=== PATIENT | female | born 1955 | race Caucasian/White ===

== ENCOUNTER 2017-08-07 13:00 | Outpatient (RCR) | payer OTHER, SELFPAY ==
--- NOTE | 2017-07-30 12:42 | HP.PTEVAL ---
Patient's Visit Information IRMA BATEMAN is a 61 year old F referred to Physical Therapy by Bob Rowley with a diagnosis of vertigo. Date of Evaluation: 07/30/17 Physical Therapist: Leroy Campos DPT, OC - Visit Plan Frequency: 1x/Week Duration: 4-6 Weeks Plan: weekly x 4-6 as needed for progression of adaptation ex to be performed at home. VORx2 next if can get coordination down. Monitor balance which is good today. - Subjective Subjective: Vertigo started intermittently a year ago insidiously. Feels unsteady but not spinning but does get nauseated in the am. upon walking. Unsteady feeling is there all day, better sitting. Feels wobbly when she gets up. 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 Saw Timmy for ears and found no problem. Had brain and neck scans which were fine. Heart checked and it is fine. Will see neurologist in October. Activities are pretty normal at home, does house work but distracting and has to be careful. No falls, no AD needed. Sleeps well. Steps are OK. Walks alot. - Objective Walks well and transfers well. VOR walking is challenging. Balance is good dynamically. - B hallpike stephania and - roll test. Oculomotor: no nystagmus with gaze or head shake. - skew eye deviation. convergence is normal. pursuit and ssaccades are normal. VOR is challenging and symptomatic, VOR x 2 8/10 symptomatic and challenging. Recovers renu minute but cannot get ccordination down to do this herself. - Balance Scores Functional Gait Assessment Score: 30 % Disability: 0 CATSIB Score (Max score 120 seconds): 100 - Goals Goal 1:: Patient tolerate VORx2 60 seconds without symptoms Goal Time Frame: 4-6 Weeks Goal 2:: Unsteady /dizzy feeling abolished and 100% improved. Goal Time Frame: 4-6 Weeks Goal 3:: Normal activities including work without missing and walking without hesitation. Goal Time Frame: 4-6 Weeks - Rehabilitation Potential Physical Therapy Diagnosis: Vertigo possible vestibular hypofunction Rehabilitation Potential: Fair - Anticipated Interventions Patient/Client Instruction: Educate patient on: Condition, Risk Factors Other: to decrease symptoms. Comment: adaptation progression Other: to abolish symptoms Thank you for the opportunity to evaluate your patient. For Medicare and Medicare HMO plans, please review the plan of care and approve it. It will need to be FAXED BACK to us at [phone] for Medicare purposes. Please let me know if there are questions or concerns regarding this plan of care. Physician Signature: Date:
--- NOTE | 2017-11-14 12:16 | HP.PT.NRP ---
HP - Discharge Summary (1) - Patient Information IRMA BATEMAN was seen in my office for initial evaluation on 07/30/17. The following Plan of Care was established for this patient: Initial Frequency: 1x/Week Initial Duration: 4-6 Weeks - Anticipated Interventions Patient/Client Instruction: Educate patient on: Condition, Risk Factors Other: to decrease symptoms. Other: to abolish symptoms This patient was last seen in our office 08/07/17. Pertinent comments regarding their Physical therapy will appear below: Pt seen for two visits of her plan for adpatation ex progression. She cancelled her third visit and did not reschedule any further visits. Will discontinue due to nonattendance. At this point I will be discontinuing this patient from physical therapy. I would be happy to see this patient again in the future if found appropriate by the physician. Thank you! Leroy Campos, DPT, OC
== END 2017-08-07 19:00 | disposition home or self-care (01) ==
LOC: PT 13:00
PROVIDERS: Family Provider Student in an Organized Health Care Education/Training Program; PCP Student in an Organized Health Care Education/Training Program; Visit Provider Student in an Organized Health Care Education/Training Program
DX: R42 Dizziness and giddiness (principal)
CPT/HCPCS: 97162; 97530

== ENCOUNTER → 2017-11-05 09:59 | Outpatient (CLI) | payer OTHER, SELFPAY ==
[2017-11-05 11:41] LABS: Hemoglobin A1c 5.4 % (4.2-6.3)
[2017-11-05 12:13] LABS: Rheumatoid Factor < 10.0 IU/mL (<15); Thyroid Stim Hormone (TSH) 2.05 uIU/mL (0.358-3.74)
[2017-11-06 08:35] LABS: Vitamin B12 434 pg/mL (211-911)
[2017-11-06 12:09] LABS: SJOGREN'S Anti-SS-A test < 0.2 AI (0.0-0.9); SJOGREN'S Anti-SS-B test < 0.2 AI (0.0-0.9)
[2017-11-07 16:09] LABS: Albumin 4.2 g/dL (2.9-4.4); Albumin, Ur 15.3 % (.); Alpha-1-Globulin, Ur 5.6 % (.); Alpha-1-Globulins 0.3 g/dL (0.0-0.4); Alpha-2-Globulins 0.8 g/dL (0.4-1.0); Alpha-2-Globulins, Ur 8.8 % (.); Cytoplasmic Ab (C-ANCA) <1:20 titer (Neg:<1:20); Gamma Globulin 0.6 g/dL (0.4-1.8); Gamma Globulin, Ur 27.3 % (.); Immunoglobulin A 134 mg/dL (87-352); Immunoglobulin G 602 mg/dL (700-1600); Immunoglobulin M 60 mg/dL (26-217); M-Spike, Ur % Not Observed % (Not Observed); Total Protein, Ur 4.2 mg/dL (Not Estab.)
[2017-11-07 16:57] LABS: ANTINUCLEAR ANTIBODIES DIRECT Negative (Negative)
[2017-11-08 11:56] LABS: Perinuclear Ab (P-ANCA) <1:20 titer (Neg:<1:20)
== END ==
PROVIDERS: Family Provider Student in an Organized Health Care Education/Training Program; PCP Student in an Organized Health Care Education/Training Program; Visit Provider Psychiatry & Neurology Neurology
DX: G62.9 Polyneuropathy, unspecified (principal); R26.81 Unsteadiness on feet
CPT/HCPCS: 36415; 82607; 82784; 83036; 84165; 84166; 84443; 86038; 86235; 86256; 86334; 86335; 86431

== ENCOUNTER 2019-06-08 14:30 | Outpatient (RCR) | payer OTHER, SELFPAY ==
[2018-10-30 13:44] VITALS: BMI 25.4
--- NOTE | 2019-04-13 17:08 | HP.PTEVAL_ITS ---
Patient's Visit Information IRMA BATEMAN is a 63 year old F referred to Physical Therapy by VAUGHN CHURCHILL with a diagnosis of S/P CERVICAL FUSION. LOSS OF BALANCE.. Date of Evaluation: 04/13/19 Physical Therapist: Mirta Bhatti, PT, Cert MDT - Visit Plan Frequency: 2-3x /Week Duration: 4-6 Weeks Plan: NEUROCOM BALANCE TEST WITH PLAN AND FURTHER GOALS TO FOLOW BASED ON RESULTS. PATIENT IS AGREEABLE. - Subjective Findings: Diagnosis: S/P CERVICAL FUSION AUGUST OF 2018. LOSS OF BALANCE. 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 Disability: NO. Present symptoms: I WALK WOBBLY ALL THE TIME. PATIENT DENIES NECK PAIN. Present since: ABOUT 2 YEARS AGO. Commenced as a result of: NO APPARENT REASON. Symptoms at onset: STARTED TO FEEL LIKE SHE WAS SWAYING WHILE STANDING IN THE KITCHEN. IT LOOKED LIKE THERE WAS SOMEHTING WRONG WITH THE FLOOR. Previous history/Previous treatment: OVER THE LAST 2 YEARS -NO BALANCE TREATMENTS OTHER THAN 2 PT VISITS. Dizziness: NO LONGER. Tinnitis: NO. Nausea: NO. Shortness of Breath: MILD INTERMITTENT. Difficulty Swollowing: NO. Gait: PATIENT REPORTS FEELING UNBALANCED AND WOBBLY WHEN SHE WALKS. SHE STATES IT IS GETTING WORSE. PATIENT REPORTS HER LEGS FEEL LIKE SHE IS IN A KIDS BOUNCY HOUSE. HER LEGS DON'T REALLY GET TIRED THEY ARE JUST REALLY WOBBLY. Accidents: NO. Unexplained weight loss: NO. Imaging: PATIENT REPORTS SHE HAS HAD HER EARS CHECKED AND THEY ARE FINE. NCT OF LE'S - NORMAL. MRI'S OF NECK AND LOW BACK - LOW BACK WAS OK BUT NECK SHOWED C56 BULGE. PMH/Recent major surgery: ANXIETY, HYPOTHYROIDISM, DEPRESSION, HIGH CHOLESTEROL. OTHER: PATIENT REPORTS THAT INITIALLY AFTER NECK SURGERY HER BALANCE GOT BETTER BUT NOW IT IS WORSE THAN BEFORE SURGERY. PATIENT REPORTS THAT SHE WAS NOT WOBBLY BEFORE SHE WAS GIVEN A MEDICATION FOR BIPOLAR DISORDER AND SHE IS WONDERING IF HER BALANCE PROBLEM IS FROM THE MEDICINE. NO LONGER ON IT. PATIENT DENIES HAVING ANY RESTRICTIONS FROM HER NECK SURGERY. - Objective Sitting Posture/Standing Posture: POOR. Other Observations: INDEP GAIT INTO PT WITHOUT ANY ASSISTIVE DEVICES BUT WOBBLY AND WALKS WITH DECREASED CADANCE. CADANCE DECREASED MORE AFTER APPROX 150 FEET. Motor deficit: LENKA UE'S AND LE'S 5/5 WITH MMT'ING. LENKA HEAD SHIPPER STRENGTH 40 LBS. Sensory deficit: LENKA UE AND LE LIGHT TOUCH SENSATION INTACT BUT LEGS ARE JUMPING WITH LE TESTING. ROM deficit: LENKA UE'S AND LE'S WFL. Reflexes: 2/3 LENKA UE'S AND LE'S. Dural Signs: NEGATIVE. Cervical Mvmt Loss: Flex: NIL. Pro: NIL. Ext: MOD. Ret: MARVIN. RSB: MIN. LSB: MIN. R Rot: MIN. L Rot: MIN. CERVICAL ROM TESTING DOES NOT PROVOKE ANY SX'S. Postural strength: POOR. OTHER: PATIENT BECOMES INCREASINGLY WOBBLY ON LEVEL SURFACE WITH EYES CLOSED. INCREASED WOBBLYNESS ON FOAM WITH AND WITHOUT EYES CLOSED. - Goals Goal 1:: INDEP AND SAFE GAIT ON ALL SURFACES WITH LEAST DEVIATIONS. Goal Time Frame: 4-6 Weeks Goal 2:: IMPROVE BALANCE Goal Time Frame: 4-6 Weeks Goal 3:: INDEP HEP Goal Time Frame: 4-6 Weeks - Rehabilitation Potential Rehabilitation Potential: Fair - Anticipated Interventions Patient/Client Instruction: Educate patient on: Condition, Plan of Care, Risk Factors, Benefits of Fitness Program For the Purpose of:: To improve self management Therapeutic Exercise to Include: Strength training, Balance training, Body mechanics, Postural training, Gait and locomotor training, Active ROM, Scapular Strength/Stabilization For the Purpose of:: To improve muscle performance and motor function, To improve ability of physical actions for home/community/work/leisure, To improve gait and locomotor functions Thank you for the opportunity to evaluate your patient. For Medicare and Medicare HMO plans, please review the plan of care and approve it. It will need to be FAXED BACK to us at [phone] for Medicare purposes. For Medicare only, by signing this I certify the plan of care. Please let me know if there are questions or concerns regarding this plan of care. Physician Signatu re: Date:
--- NOTE | 2019-04-21 15:50 | HP.PTCOM ---
PT Communication Note 04/21/[address] VAUGHN CHURCHILL , Thank you for the referral of Vidya to [facility] for balance Assessment. I ahve enclosed a copy of the results for your review. She scored poorly on the Sensory Organization Test adn Adaptation Test despite doing well on the Motor Control and Limits of Stability Test. These are very unusual results. Based on these results, a plan of care for exercise will be modified with the evaluating therapist at next visit. Thank you for this referral. Sincerely, Leroy Campos, DPT, OCS, CSCS Contact Information
--- NOTE | 2019-05-29 15:53 | HP.PTREVAL ---
VAUGHN CHURCHILL, It has been my pleasure to treat IRMA BATEMAN over the last 14 visits for S/P CERVICAL FUSION. LOSS OF BALANCE.. Please see the progress note below for an update on the physical therapy plan of care! Subjective: PATIENT REPORTS SHE FEELS HER BALANCE IS ABOUT 50% BETTER SINCE STARTING PT. PATIENT WOULD LIKE TO CONTIUE PT FOR HER BALANCE AT THIS POINT. PATIENT REPORTS HER LEFT SHLD STARTED HURTING LAST WEEK AND SHE SAW HER DR. FOR IT THIS WEEK ([facility]OLD[facility]). STARTED PREDNISONE TODAY. HASN'T HAD LEFT SHOULDER PAIN TODAY (WORKED 8 HOURS TODAY) BUT HAD PAIN YESTERDAY UP TO 08/15 - MY HAS BEEN RUBBING IT OUT. PATIENT REPORTS SHE WOULD LIKE TO WAIT AND SEE HOW HER SHOULDER DOES WITH THE MEDICINE BEFORE SHE DOES ANYTHING ELSE FOR IT. PATIENT NOW RECALLS THAT SHE HAS STARTED DOING A LOT OF MOPPING OVER THE LAST MONTH AT WORK AND SHE THINKS HER SHOULDER PAIN MIGHT BE RELATED TO THAT WELL. PATIENT REPORTS HER CHIEF CONCERN IS HER BALANCE. Objective/Function: PATIENT WAS SEEN TODAY FOR RE-ASSESSMENT OF PROGRESS TOWARD THE SET PT GOALS AND THE NEED FOR FURTHER PHYSICAL THERAPY VS READINESS FOR DISCHARGE. SHE IS MAKING GOOD PROGRESS WITH HER BALANCE AND IS A GOOD CANDIDATE TO CONTINUE PT. SHE IS DEFERRING EVALUATION OF HER SHOULDER AT THIS TIME AND WILL LET US KNWO IF SHE WOULD LIKE TO HAVE IT EVALUATED IN THE FUTURE. UPON EXAM TODAY: Cervical Mvmt Loss: Flex: NIL. Pro: NIL. Ext: MOD. Ret: MOD. RSB: MIN. LSB: MIN. R Rot: NIL. L Rot: MIN. CERVICAL ROM TESTING DOES NOT PROVOKE ANY SX'S. Postural strength: POOR. OTHER: PATIENT IS NOW ABLE TO STAND STILL ON LEVEL SURFACES WITH EYES OPEN AND CLOSED WITHOUT BECOMING WOBBLY. SHE IS EVEN ABLE TO STAND ON FOAM WITH EYES OPEN WITH GOOD BALANCE BUT WITH EYES CLOSED ON FOAM SHE GETS WOBBLY ALTHOUGH SHE CAN STEADY HER BALANCE AT TIMES ON THIS SURFACE WHICH IS A BIG IMPROVEMENT. Plan Plan: CONTINUING WITH WITH FUNCTIONAL BALANCE/STRENGTH(GENERAL BALANCE AND STRENGTH/CONDITIONING EX TO HEP) AND PROGRESSION OF HEP WITH VESTIBULAR AND VISUAL. CONT 2X'S A WK X 4 WKS. PT HAS NEW SCRIPT FROM TOBY BOLDEN FOR LEFT TRAP STRAIN AND RECOMMENDING DRY NEEDLING - PATIENT WILL LET US KNOW IF SHE WANTS TO PURSUE THIS IN THE FUTURE. Goals Goal 1:: INDEP AND SAFE GAIT ON ALL SURFACES WITH LEAST DEVIATIONS. Goal Time Frame: 4-6 Weeks Goal Progress: Goal Met Goal 2:: IMPROVE BALANCE Goal Time Frame: 4-6 Weeks Goal Progress: Progressing Goal 3:: INDEP HEP Goal Time Frame: 4-6 Weeks Goal Progress: Progressing Anticipated Interventions Patient/Client Instruction: Educate patient on: Condition, Plan of Care, Risk Factors, Benefits of Fitness Program For the Purpose of:: To improve self management Therapeutic Exercise to Include: Strength training, Balance training, Body mechanics, Postural training, Gait and locomotor training, Active ROM, Scapular Strength/Stabilization For the Purpose of:: To improve muscle performance and motor function, To improve ability of physical actions for home/community/work/leisure, To improve gait and locomotor functions Please do not hesitate to contact me at [phone] by phone or if you have questions or concerns regarding this new plan of care! Sincerely, Mirta Bhatti, PT, Cert MDT
--- NOTE | 2019-07-07 12:39 | HP.PT.NRP ---
IRMA BATEMAN was seen in my office for initial evaluation on 04/13/19. The following Plan of Care was established for this patient: Initial Frequency: 2-3x /Week Initial Duration: 4-6 Weeks Patient/Client Instruction: Educate patient on: Condition, Plan of Care, Risk Factors, Benefits of Fitness Program For the Purpose of:: To improve self management Therapeutic Exercise to Include: Strength training, Balance training, Body mechanics, Postural training, Gait and locomotor training, Active ROM, Scapular Strength/Stabilization For the Purpose of:: To improve muscle performance and motor function, To improve ability of physical actions for home/community/work/leisure, To improve gait and locomotor functions This patient was last seen in our office 06/08/19. Pertinent comments regarding their Physical therapy will appear below: This patient has not returned to Physical Therapy and is appropriate to return to MD for further follow-up as needed. At this point I will be discontinuing this patient from physical therapy. I would be happy to see this patient again in the future if found appropriate by the physician. Thank you! Mirta Bhatti, PT, Cert MDT
== END 2019-06-08 19:00 | disposition home or self-care (01) ==
LOC: PT 14:30
PROVIDERS: Family Provider Student in an Organized Health Care Education/Training Program; PCP Student in an Organized Health Care Education/Training Program
DX: S46.812D Strain of other muscles, fascia and tendons at shoulder and upper arm level, left arm, subsequent encounter (principal); Z98.1 Arthrodesis status; R26.89 Other abnormalities of gait and mobility
CPT/HCPCS: 97110; 97162; 97164; 97530; 97750

== ENCOUNTER 2019-09-30 11:00 | Outpatient (RCR) | payer OTHER, SELFPAY ==
[2018-10-30 13:44] VITALS: BMI 25.4
--- NOTE | 2019-09-08 11:54 | HP.PTEVAL ---
Patient's Visit Information IRMA BATEMAN is a 63 year old F referred to Physical Therapy by VAUGHN CHURCHILL with a diagnosis of Gait Instability. Date of Evaluation: 09/08/19 Physical Therapist: Sherrell Hsieh DPT - Visit Plan Frequency: 3x /Week Duration: 4 Weeks Plan: Balance exercises- Per Leroy Campos Report in April regular therapy for vestibular and foam challenge - Subjective Patient reports that she 3 years ago she started feeling unbalance in her legs- like the floor was moving- so she went to PCP who sent her to Dr. Ellis who went her to many neurologists- did have an MRI of the brain and spine- but they were unsure of what was going on with her legs. They found C5-6 and she had a Acdf August 2018- went back to work after 8 weeks and she could still feel the wobbliness but she could handle it. Started to get worse- had PT including a balance assessment. Was 60% better and felt good- slightly unbalances but she was walking better without an assistive device unless as work. 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 She was laid off yesterday so she is off for another 2 months. Feels that she is not getting enough exercise and has backslid. Dr. Ellis wants her to have another MRI but insurance denied it- so she came back to PT. Feels that since she stopped PT she is now using a cane all the time and when she walks she feels like her feet are going down in the carpet-walking on quicksand. Has not had any falls at this time. Does have stairs at home and uses hand rails. Does drive- she reports no symptoms when she sitting. No dizziness or HILL. She feels like she is constantly taking her glasses off due to strain. No SOB or tinnitis. Does have mild pain the right shoulder that comes and goes but thinks its due to being inactive. No pain in the lumbar spine or LE. Lives with - takes her longer to do all ADL's but is able to still manage. PMHx: thyroid Meds, HTN, asthma: anxiety, HTN med, inhaler - Objective Posture: Fair throughout in both sitting and standing. Gait: antaxic- currently using a quad cane in the right hand. Foot placement is good but legs tend to buckle- she can correct buckling and does not fall. Stairs: asc/desc 8 recip with 1 HR- no LOB. HR/TR: able with full ROM. Balance: unable to SLS without UE A. Amb with head turn horizon: deviation was increased and required to slow down and A from PT to balance. Amb with vert head turns able to maintain speed. Backwards: able with cane. Tandem stance: left: able to obtain and hold 20 seconds Right: able to obtain and hold 5 seconds increased LOB and sway. Eyes closed: LOB x 2 with righting from PT. ROM: WFL in all planes of lumbar and LE. Sensation/Reflex: WNL. Strength: Ankle: 5/5, knee: 5/5, Hip: 4+/5 throughout Core: fair plus. Dural Signs: negative - Balance Scores Functional Gait Assessment Score: 13 % Disability: 56.6700 - Goals Goal 1:: Patient will be I with HEP and progression Goal Time Frame: 4-6 Weeks Goal 2:: Patient will ambulate >300 feet with a normalized gait pattern and LRD Goal Time Frame: 4-6 Weeks Goal 3:: Patient will improve her FGI by 5 points Goal Time Frame: 4-6 Weeks - Rehabilitation Potential Physical Therapy Diagnosis: Patient presents with hypomobility. She has poor balance and functional mobility leading to increased difficulty with ADL's. Rehabilitation Potential: Fair - Anticipated Interventions Patient/Client Instruction: Educate patient on: Benefits of Fitness Program Therapeutic Exercise to Include: Strength training, Endurance training, Balance training, Coordination, Agility training, Body mechanics, Postural training, Flexibilty training, Gait and locomotor training, Neuromotor development, Dynamic Lumbar Stabilization For the Purpose of:: To improve muscle performance and motor function Functional Training to Include: Gait training Thank you for the opportunity to evaluate your patient. For Medicare and Medicare HMO plans, please review the plan of care and approve it. It will need to be FAXED BACK to us at [phone] for Medicare purposes. For Medicare only, by signing this I certify the plan of care. Please let me know if there are questions or concerns regarding this plan of care. Physician Signature: Date:
--- NOTE | 2019-10-26 11:12 | HP.PT.NRP ---
IRMA BATEMAN was seen in my office for initial evaluation on 09/08/19. The following Plan of Care was established for this patient: Initial Frequency: 3x /Week Initial Duration: 4 Weeks Patient/Client Instruction: Educate patient on: Benefits of Fitness Program Therapeutic Exercise to Include: Strength training, Endurance training, Balance training, Coordination, Agility training, Body mechanics, Postural training, Flexibilty training, Gait and locomotor training, Neuromotor development, Dynamic Lumbar Stabilization For the Purpose of:: To improve muscle performance and motor function Functional Training to Include: Gait training This patient was last seen in our office . Pertinent comments regarding their Physical therapy will appear below: Patient is having knee surgery- d/c at this time At this point I will be discontinuing this patient from physical therapy. I would be happy to see this patient again in the future if found appropriate by the physician. Thank you! MAURICIO CastroT
== END 2019-09-30 19:00 | disposition home or self-care (01) ==
LOC: PT 11:00
PROVIDERS: PCP Student in an Organized Health Care Education/Training Program
DX: M48.02 Spinal stenosis, cervical region (principal); R26.81 Unsteadiness on feet; Z98.1 Arthrodesis status
CPT/HCPCS: 97110; 97112; 97162

== ENCOUNTER → 2019-10-19 13:07 | Outpatient (CLI) | payer OTHER, SELFPAY ==
[2018-10-30 13:44] VITALS: BMI 25.4
--- NOTE | 2019-10-19 13:18 | EKG12_ITS ---
Test Reason : PRE OP Blood Pressure : / mmHG Vent. Rate : 068 BPM Atrial Rate : 068 BPM P-R Int : 110 ms QRS Dur : 076 ms QT Int : 392 ms P-R-T Axes : 042 005 043 degrees QTc Int : 416 ms Sinus rhythm with short OH Otherwise normal ECG Confirmed by HARESH OVALLES, CARL ([id number]), newspaper photo editor JERRY MCCORMACK ([id number]) on 10/20/2019 10:09:41 AM Referred By: Jeromy Lopez Confirmed By:CARL HUTSON MD
[2019-10-19 13:54] LABS: Hematocrit 44.8 % (37-47); Hemoglobin 14.9 g/dL (12.0-15.0); Mean Corp Hgb Conc 33.3 g/dL (32-36); Mean Corpuscular Hgb 31.8 pg (27.0-32.0); Mean Corpuscular Volume 95.5 fL (81-99); Mean Platelet Vol. 10.6 fl (6.2-12.0); Platelet Count 298 K/mm3 (150-450); RBC Distribution Width SD 45.2 fl (35.1-43.9); Red Blood Count 4.69 M/mm3 (4.2-5.4); White Blood Count 8.1 K/mm3 (4.4-11.0)
[2019-10-19 14:17] LABS: Anion Gap 5 (5-15); BUN 8 mg/dL (7-18); BUN/Creat Ratio 12.1 RATIO (10-20); Calcium,Total 8.9 mg/dL (8.5-10.1); Chloride 103 mmol/L (98-107); Creatinine, Serum 0.66 mg/dL (0.55-1.02); EST Glomerular Filtration Rate 96 mL/min (>60); Est Glom Filt Rate - Afr Amer 116 mL/min (>60); Glucose 69 mg/dL (74-106); Sodium Level 137 mmol/L (136-145)
== END ==
PROVIDERS: PCP Student in an Organized Health Care Education/Training Program; Referring Provider Physician Assistant; Visit Provider Physician Assistant
DX: Z01.810 Encounter for preprocedural cardiovascular examination (principal)
CPT/HCPCS: 36415; 80048; 85027; 93005

== ENCOUNTER → 2019-11-05 11:26 | Outpatient (CLI) | payer OTHER, SELFPAY ==
[2018-10-30 13:44] VITALS: BMI 25.4
== END ==
PROVIDERS: PCP Student in an Organized Health Care Education/Training Program; Referring Provider Physician Assistant; Visit Provider Physician Assistant
DX: Z11.59 Encounter for screening for other viral diseases (principal)
CPT/HCPCS: 87635; 94799; U0003

== ENCOUNTER 2019-12-18 11:00 | Outpatient (RCR) | payer OTHER, SELFPAY ==
[2018-10-30 13:44] VITALS: BMI 25.4
--- NOTE | 2019-11-18 14:32 | HP.PTEVAL ---
Patient's Visit Information IRMA BATEMAN is a 64 year old F referred to Physical Therapy by Dr. Tarun Jama DO with a diagnosis of UNILATERAL PRIMARY OSTEOARTHRITIS,RIGHT KNEE,TEAR OF MEDIAL MENISCUS. Date of Evaluation: 11/18/19 Physical Therapist: Dru Cooper, PT, Cert MDT, OCS - Visit Plan Frequency: 2x /Week Duration: 4 Weeks Plan: PT INTERVENTIONS ROM/FLEXABLITY RIGHT KNEE ,PRE'S QUADS/HAM/HIP,FUNCTIONAL STRENGTHENING ,GAIT TRAINING - Subjective This 64 y/o female presents to physical therapy with right knee arthroscopic on Nov 10 at [facility] done by DR Simmons. Patient d/c home with cane . Patient had MRI prior to surgey showed torn meniscus.Patient had no prior PT. Patient denies parathesia/tingling. Patient unable to squat/kneel and stairs one step at time .Patient uses ice at home uses percocet. Patient surgery affectrs ADL'S ,houswork tasks and function. Patient condition affects QOL.RTW Dec 25. SOCIAL: . VOCATION: [employer] - Objective POSTURE: mild foward posture. GAIT: ambulates with cane with 2 point gait with decrease stance time. EDEMA: 38.8 cm joint line. AROM: supine knee flexion 2-95 degrees. MMT: quads/hams 3+/5,hip 4-/5,ankle 4/5. STAIRS: one step at time with cane. FLEXABLITY: hams mild tight - Goals Goal 1:: I with HEP. Goal Time Frame: 4-6 Weeks Goal 2:: Patient to increase AROM right knee 0-120 degrees or > to improve gait Goal Time Frame: 4-6 Weeks Goal 3:: Patient to increase strength of quads/hams 4/5 and hip to 4/5 to improve gait. Goal Time Frame: 4-6 Weeks Goal 4:: Patient to increase strength quads/hams/hip to 4/5 to improve gait Goal Time Frame: 4-6 Weeks Goal 5:: Patient to normalize gait community distances Goal Time Frame: 4-6 Weeks Goal 6:: Patient to improve LFES score by 10points or > to improve QOL Goal Time Frame: 4-6 Weeks - Rehabilitation Potential Physical Therapy Diagnosis: This patient underwent s/p arhrospic knee menisectomy with decrease ROM ,strength ,gait and stairs thus benifit from skilled PT Rehabilitation Potential: Good - Anticipated Interventions Patient/Client Instruction: Educate patient on: Condition, Plan of Care For the Purpose of:: To decrease pain, To increase ROM, To improve muscle performance and motor function, To improve ability to perform ADL's, To increase tolerance to activity/condition/position, To improve ability of physical actions for home/community/work/leisure, To improve health of tissue, To decrease soft tissue restriction, To increase flexibility/ROM, To improve ability to perform tasks related to life management Therapeutic Exercise to Include: Strength training, Endurance training, Balance training, Flexibilty training, Gait and locomotor training, Passive ROM, Active ROM Comment: HIP/KNEE For the Purpose of:: To decrease pain, To increase ROM, To improve muscle performance and motor function, To increase tolerance to activity/condition/position, To improve performance and independence with ADL's, To improve ability of physical actions for home/community/work/leisure, To improve gait and locomotor functions, To improve health of tissue, To decrease soft tissue restriction, To increase flexibility/ROM, To improve endurance, To reduce risk of recurrence, To improve ability to perform tasks related to life management TENS: Yes IF ES: Yes Cryotherapy (ice pack, ice massage): Yes Thermo therapy (hot pack): Yes Ultrasound (thermal/non thermal): Yes For the Purpose of:: To decrease pain, To increase ROM, To improve health of tissue, To decrease soft tissue restriction, To increase flexibility/ROM Thank you for the opportunity to evaluate your patient. For Medicare and Medicare HMO plans, please review the plan of care and approve it. It will need to be FAXED BACK to us at [phone] for Medicare purposes. For Medicare only, by signing this I certify the plan of care. Please let me know if there are questions or concerns regarding this plan of care. Physician Signature: Date:
--- NOTE | 2019-12-18 11:29 | HP.PTDCSUM ---
It has been my pleasure to treat IRMA BATEMAN referred by Dr. Tarun Jama DO, with the diagnosis of UNILATERAL PRIMARY OSTEOARTHRITIS,RIGHT KNEE,TEAR OF MEDIAL MENISCUS for a total of 10 visit(s). Discharge Date: 12/18/19 Please see the following information for a summary of their discharge status. Subjective: Doing well .. no pain Ready for d/c . Will start new oefer for balance. Patient able to do stairs and ADLS' and housework tasks % Improvement: 99 Objective/Function: POSTURE: WFL. GAIT: reciprocal pattern. STAIRS: ascend 12 steps with no rail and descend with rails alteranting. AROM: 0-135 SUPINE KNEE FKEXION. MMT: QUADS/HAMS 4/5,HIP 4/5 Goal 1:: I with HEP. Goal Progress: Goal Met Goal 2:: Patient to increase AROM right knee 0-120 degrees or > to improve gait Goal Progress: Goal Met Goal 3:: Patient to increase strength of quads/hams 4/5 and hip to 4/5 to improve gait. Goal Progress: Goal Met Goal 4:: Patient to increase strength quads/hams/hip to 4/5 to improve gait Goal Progress: Goal Met Goal 5:: Patient to normalize gait community distances Goal Progress: Goal Met Goal 6:: Patient to improve LFES score by 10points or > to improve QOL Goal Progress: Goal Met Plan: d/c to HEP Discharge Comments: HEP If there are questions or concerns regarding this patient's physical therapy, please feel free to call me at [phone]. Thank you for the referral of this patient. Sincerely, Dru Cooper, PT, Cert MDT, OCS
== END 2019-12-18 19:00 | disposition home or self-care (01) ==
LOC: PT 11:00
PROVIDERS: PCP Student in an Organized Health Care Education/Training Program; Referring Provider Orthopaedic Surgery; Visit Provider Orthopaedic Surgery
DX: S83.241D Other tear of medial meniscus, current injury, right knee, subsequent encounter (principal); M17.11 Unilateral primary osteoarthritis, right knee; R26.9 Unspecified abnormalities of gait and mobility
CPT/HCPCS: 97110; 97162

== ENCOUNTER 2020-01-22 13:30 | Outpatient (RCR) | payer OTHER, SELFPAY ==
[2018-10-30 13:44] VITALS: BMI 25.4
--- NOTE | 2019-12-28 12:53 | HP.PTEVAL ---
Patient's Visit Information IRMA BATEMAN is a 64 year old F referred to Physical Therapy by SHARRI Cardona with a diagnosis of ABNORMALITY OF GAIT. Date of Evaluation: 12/28/19 Physical Therapist: Dru Cooepr, PT, Cert MDT, OCS - Visit Plan Frequency: 2x /Week Duration: 4 Weeks Plan: RECENT S/P RIGHT ARTHROSCPIC. PT INTERVETIONS PROGRESSIVE BALANCE PROGRAM,ENDURANCE PROGRAM ,FUNCTIONAL STRENGTH - Subjective This 64 y/o female presents to physical therapy with abnormality of gait and balance problems. Patient recently had right arthroscopic right knee Nov 10 and did well. Patient most recently has had balance problems and unsteady with gait. Patient states no falls,. Patient fells more unsteady walking on uneven surfaces. Patient denies dizziness/nausea/tinnutis or any h/o vertigo. Patient is able to ascend/desend steps alteranting with rail. Patient balance deficits impair job deamnds [employer]. Patient condition affects QOL. SOCIAL: . VOCATION: [employer] - Objective POSTURE: mild knee valgus. GAIT: reciprocal pattern mild unsteady sway. NEURO: intact. FLEXABILITY: hams WFL. AROM: 0-130 supine knee flexion. MMT: quads/hams 4/5,hip flexion 4-/5,ankle 4/5. STAIRS: alternating with rail. SLS: 5 sec RLE,10sec LLE - Balance Scores Functional Gait Assessment Score: 17 % Disability: 43.3400 CATSIB Score (Max score 120 seconds): 80 - Goals Goal 1:: I with HEP Goal Time Frame: 4-6 Weeks Goal 2:: Improve functional gait assessment score by 5 ponts or > to improve gait Goal Time Frame: 4-6 Weeks Goal 3:: Patient improve CATSIB by 5 points or > to improve balance Goal Time Frame: 4-6 Weeks Goal 4:: Patient to improve LFES score by 5 points or > to improve gait and function Goal Time Frame: 4-6 Weeks - Rehabilitation Potential Physical Therapy Diagnosis: This patient has balance deficits with decrease CATSIB score,functional gait assessment with decrease somatosensory and vistibular on uneven surfaces thus benifit from skilled PT Rehabilitation Potential: Good - Anticipated Interventions Patient/Client Instruction: Educate patient on: Condition, Plan of Care For the Purpose of:: To decrease pain, To increase ROM, To improve muscle performance and motor function, To improve ability to perform ADL's, To increase tolerance to activity/condition/position, To improve performance and independence with ADL's, To improve ability of physical actions for home/community/work/leisure, To improve gait and locomotor functions, To increase flexibility/ROM, To improve balance Therapeutic Exercise to Include: Strength training, Endurance training, Balance training, Flexibilty training, Gait and locomotor training, Active ROM For the Purpose of:: To increase ROM, To improve muscle performance and motor function, To improve ability to perform ADL's, To increase tolerance to activity/condition/position, To improve ability of physical actions for home/community/work/leisure, To improve gait and locomotor functions, To improve endurance, To improve balance, To reduce risk of recurrence, To improve ability to perform tasks related to life management Thank you for the opportunity to evaluate your patient. For Medicare and Medicare HMO plans, please review the plan of care and approve it. It will need to be FAXED BACK to us at [phone] for Medicare purposes. For Medicare only, by signing this I certify the plan of care. Please let me know if there are questions or concerns regarding this plan of care. Physician Signature: Date:
--- NOTE | 2020-01-05 12:57 | HP.PTRE(2)_ITS ---
Maris Kern, FABIÁN-C, It has been my pleasure to treat IRMA BATEMAN over the last 10 visits for UNILATERAL PRIMARY OSTEOARTHRITIS RIGHT KNEE ,TEAR OF MEDIAL MENISCUS. Please see the progress note below for an update on the physical therapy plan of care! Subjective: PATIENT RETURN TO MD WANTS TO CONT WITH PT. PATIENT UNDERWENT S/P ARTHRSOPIC . RTW JAN 6 Objective/Function/Assessment: POSTURE: mild knee valgus. GAIT: reciprocal pattern mild decrease stance time. AROM: 0-140 DEGREES SUPINE FLEXION. MMT: quads/hams 4/5,hip flexion/ abduction 4-/5. STAIRS: alternating with rail more difficulty descending Plan Plan: CONT WITH POC WITH RIGHT KNEE WITH ROM ,STRENGTHENING QU ADS/HAMS,HIP,FUNCTIONAL STRENGTHENING Goals Goal 1:: I with progression with HEP right knee Goal Time Frame: 4-6 Weeks Goal 2:: Patient ascend /descend right knee alteranating without rail Goal Time Frame: 4-6 Weeks Goal 3:: Patient to normalize gait on uneven surfaces Goal Time Frame: 4-6 Weeks Goal Progress: Progressing Goal 4:: Patient improve LFES score by 5-10 points to improcve gait Goal Time Frame: 4-6 Weeks Goal 5:: Patient be able to RTW with min limiations Anticipated Interventions Patient/Client Instruction: Educate patient on: Condition, Plan of Care For the Purpose of:: To decrease pain, To increase ROM, To improve muscle performance and motor function, To improve ability to perform ADL's, To decrease level of supervision to perform tasks, To improve gait and locomotor functions, To increase flexibility/ROM, To improve endurance, To reduce risk of recurrence, To improve ability to perform tasks related to life management Therapeutic Exercise to Include: Strength training, Balance training, Flexibilty training, Gait and locomotor training, via [employer] Balance Mas, Active ROM For the Purpose of:: To decrease pain, To increase ROM, To improve muscle performance and motor function, To improve ability to perform ADL's, To improve ability of physical actions for home/community/work/leisure, To improve gait and locomotor functions, To improve health of tissue, To decrease soft tissue rest riction, To increase flexibility/ROM, To improve ability to perform tasks related to life management Please do not hesitate to contact me at [phone] by phone or if you have questions or concerns regarding this new plan of care! Sincerely, Dru Cooper, PT, Cert MDT, OCS
--- NOTE | 2020-01-22 14:01 | HP.PTDCSUM_ITS ---
It has been my pleasure to treat IRMA BATEMAN referred by Maris Kern, BILLY Butler, with the diagnosis of ABNORMALITY OF GAIT for a total of 6 visit(s). Discharge Date: Please see the following information for a summary of their discharge status. Subjective: No change in balance . pt noted still feeling like her feet are off. pt is going to go to eye dr about her vision issues. Still gets dizzy when going sit to stand too quickly. Objective/Function: ex altered today d/t R knee pain c/o. pt is definately challenged w/ balance EC. pt struggles at home when amb in the dark in her home and has to use surfaces to balance. Goal 1:: I with HEP Goal 2:: Improve functional gait assessment score by 5 ponts or > to improve gait Goal 3:: Patient improve CATSIB by 5 points or > to improve balance Goal 4:: Patient to improve LFES score by 5 points or > to improve gait and function Plan: RECENT S/P RIGHT ARTHROSCPIC. PT INTERVETIONS PROGRESSIVE BALANCE PROGRAM,ENDURANCE PROGRAM ,FUNCTIONAL STRENGTH If there are questions or concerns regarding this patient's physical therapy, please feel free to call me at [phone]. Thank you for the referral of this patient. Sincerely, Dru Cooper, PT, Cert MDT, OCS
--- NOTE | 2020-01-22 14:17 | HP.PTDCSUM ---
It has been my pleasure to treat IRMA BATEMAN referred by SHARRI Cardona, with the diagnosis of ABNORMALITY OF GAIT for a total of 7 visit(s). Discharge Date: 01/22/20 Please see the following information for a summary of their discharge status. Subjective: Patient is doing good with balance no problems,RTW. WALK on alcrons yesterday. % Improvement: 80 Objective/Function: POSTURE: WFL. MMT: QUADS/HAMS 5/5,HIP 4/5. BALANCE: GOOD. SLS : 30SEC X2 Goal 1:: I with HEP Goal Progress: Goal Met Goal 2:: Improve functional gait assessment score by 5 ponts or > to improve gait Goal Progress: Goal Met Goal 3:: Patient improve CATSIB by 5 points or > to improve balance Goal Progress: Goal Met Goal 4:: Patient to improve LFES score by 5 points or > to improve gait and function Goal Progress: Goal Met Plan: D/C If there are questions or concerns regarding this patient's physical therapy, please feel free to call me at [phone]. Thank you for the referral of this patient. Sincerely, Dru Cooper, PT, Cert MDT, OCS
--- NOTE | 2020-01-22 14:20 | HP.PTDCS(2) ---
It has been my pleasure to treat IRMA BATEMAN referred by SHARRI Cardona, with the diagnosis of UNILATERAL PRIMARY OSTEOARTHRITIS RIGHT KNEE ,TEAR OF MEDIAL MENISCUS for a total of 14 visit(s). Discharge Date: 01/22/20 Please see the following information for a summary of their discharge status. Subjective: Doing better no pain. Able to walk up the steps no pain . Doing well . RTW Jan 6 % Improvement: 95 Objective/Function/Assessment: POSTURE: WFL. GAIT: RECIPROCAL PATTERN. AROM: 0-135 DEGREES. MMT: 5/5 QUADS/HAMS ,HIP FLEXION 4/5,ANKLE 5/5. STAITRS: ALTERANATING ASCENDING NO RAILS,DESNEDING WITH RAIL ALTERANATING Patient Goals: Improve Mobility, Improve Function, Alleviate Pain, Walk Normal, Maneuver Steps, Other Other Goals: RTW Goal 1:: I with progression with HEP right knee Goal Progress: Goal Met Goal 2:: Patient ascend /descend right knee alteranating without rail Goal Progress: Goal Met Goal 3:: Patient to normalize gait on uneven surfaces Goal Progress: Goal Met Goal 4:: Patient improve LFES score by 5-10 points to improcve gait Goal Progress: Goal Met Goal 5:: Patient be able to RTW with min limiations Plan: D/C Discharge Comments: HEP If there are questions or concerns regarding this patient's physical therapy, please feel free to call me at [phone]. Thank you for the referral of this patient. Sincerely, Dru Cooper, PT, Cert MDT, OCS
== END 2020-01-22 19:00 | disposition home or self-care (01) ==
LOC: PT 13:30
PROVIDERS: PCP Student in an Organized Health Care Education/Training Program; Referring Provider Nurse Practitioner Family; Visit Provider Nurse Practitioner Family
DX: R26.9 Unspecified abnormalities of gait and mobility (principal)
CPT/HCPCS: 97110; 97162; 97530

== ENCOUNTER 2020-10-25 11:00 | Outpatient (RCR) | payer OTHER, SELFPAY ==
[2018-10-30 13:44] VITALS: BMI 25.4
--- NOTE | 2020-09-26 14:24 | HP.PTEVAL_ITS ---
Patient's Visit Information IRMA BATEMAN is a 64 year old F referred to Physical Therapy by LAUREN HERNANDEZ with a diagnosis of Functional gait disorder, loss of balance, apraxia. Date of Evaluation: 09/26/20 Physical Therapist: JANAY Chavis - Visit Plan Frequency: 2x /Week Duration: 6 Weeks Plan: 2X/ week for 4-6 weeks for LE strengthening, gait training, balance and vestibular inputs (especially with eyes closed and foam work), corrdination with HEP - Subjective Pt reports that she was here in PT before for her balance at least 9 months ago and her legs have gotten worse. She saw another nuerologist in [place] and basically he said if she did not do therapy she would end up in retirement. She is not working and on FMLA. She has an assessment in [place] in October. She is doing a test in a chair with goggles on in [place] in October. She is not having dizziness. She complains that when she walks her feet feel like they are going down in the carpet, she is unsteady when she walks. Since her R knee surgery (menisectomy) she has to do exercises with the knee because her knee is so tight. She has not had any falls. She uses a cane all the time when she leaves the house. Her imbalance all started in 2018. She has had neck surgery (C5-C6) and they were thinking that was her imbalance but it did not go away after the surgery. She reports that both legs feel weak when she walks. She is able to go up the steps with a railing and reports 2 feet to a step. Sit to stand: she is able to. 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 - Objective Gait: Walks with apraxia and decreased proprioception with wider LOREN and decreased stride.. Walking BW is better than walking FW. LE MMT: B hip flex 4-/5, B knee ext 4/5, B knee flex 4-/5, B hip abd 4-/5. Pt was able to walk on heels and toes without UE support. FGA 12. CATSIB 75. Patellar DTR's 3+ B. Clonus possible 2 beat... pt finds it hard to relax - Balance Scores Functional Gait Assessment Score: 12 % Disability: 60.0000 CATSIB Score (Max score 120 seconds): 75 - Goals Goal 1:: I HEP Goal Time Frame: 4-6 Weeks Goal 2:: Increase CATSIB by 15 points to decrease fall risk (CATSIB 12 at time of eval) Goal Time Frame: 4-6 Weeks Goal 3:: Be able to walk with 50% increase in confidence Goal Time Frame: 4-6 Weeks Goal 4:: Increase B LE strength by 1/2 muscle grade (at time of eval: LE MMT: B hip flex 4-/5, B knee ext 4/5, B knee flex 4-/5, B hip abd 4-/5. Pt was able to walk on heels and toes without UE support). - Rehabilitation Potential Rehabilitation Potential: Good - Anticipated Interventions Patient/Client Instruction: Educate patient on: Condition, Plan of Care For the Purpose of:: To increase ROM, To improve nutrient delivery to tissue, To improve muscle performance and motor function, To improve ability to perform ADL's, To increase tolerance to activity/condition/position, To improve performance and independence with ADL's, To decrease level of supervision to perform tasks, To improve ability of physical actions for home/com munity/work/leisure, To improve health of tissue, To increase flexibility/ROM, To improve balance, To improve safety with gait Therapeutic Exercise to Include: Strength training, Endurance training, Balance training, Postural training, Flexibilty training, Gait and locomotor training, Neuromotor development, Passive ROM, Active ROM For the Purpose of:: To improve nutrient delivery to tissue, To improve muscle performance and motor function, To improve ability to perform ADL's, To increase tolerance to activity/condition/position, To improve performance and independence with ADL's, To decrease level of supervision to perform tasks, To improve ability of physical actions for home/community/work/leisure, To improve gait and locomotor functions, To improve health of tissue, To decrease soft tissue restriction, To increase flexibility/ROM, To improve balance, To improve safety with gait Functional Training to Include: Gait training For the Purpose of:: To improve gait and locomotor functions, To improve safety with gait Thank you for the opportunity to evaluate your patient. For Medicare and Medicare HMO plans, please review the plan of care and approve it. It will need to be FAXED BACK to us at [phone] for Medicare purposes. For Medicare only, by signing this I certify the plan of care. Please let me know if there are questions or concerns regarding this plan of care. Physician Signature: Date:_
--- NOTE | 2020-10-25 11:24 | HP.PTDCSUM ---
It has been my pleasure to treat IRMA BATEMAN referred by LAUREN HERNANDEZ, with the diagnosis of Functional gait disorder, loss of balance, apraxia for a total of 9 visit(s). Discharge Date: 10/25/20 Please see the following information for a summary of their discharge status. Subjective: Pt goes back to see her Dr in November. She had her FCE but can not tell what that means as far as her job goes. She goes back to [place] on to asses her brain and her ears. Pt feels that she has made little improvement. % Improvement: 20 Objective/Function: CATSIB 115. FGA 13. LE MMT: B hip flex 4-/5, B knee ext 4/5, B knee flex 4-/5, B hip abd 4/5. Pt was able to walk on heels and toes without UE support Goal 1:: I HEP Goal Progress: Goal Met Goal 2:: Increase CATSIB by 15 points to decrease fall risk (CATSIB 12 at time of eval) Goal Progress: Goal Met Goal 3:: Be able to walk with 50% increase in confidence Goal Progress: Progressing Goal 4:: Increase B LE strength by 1/2 muscle grade (at time of eval: LE MMT: B hip flex 4-/5, B knee ext 4/5, B knee flex 4-/5, B hip abd 4-/5. Pt was able to walk on heels and toes without UE support). Goal Progress: Progressing Plan: DC PT to HEP Discharge Comments: DC To I HEP and follow up with . If there are questions or concerns regarding this patient's physical therapy, please feel free to call me at [phone]. Thank you for the referral of this patient. Sincerely, Love Crisostomo, MPT
== END 2020-10-25 14:54 | disposition home or self-care (01) ==
LOC: PT 11:00
PROVIDERS: PCP Student in an Organized Health Care Education/Training Program
DX: R26.89 Other abnormalities of gait and mobility (principal); R48.2 Apraxia
CPT/HCPCS: 97110; 97162; 97530

== ENCOUNTER 2020-11-25 14:30 | Outpatient (RCR) | payer OTHER, SELFPAY ==
[2018-10-30 13:44] VITALS: BMI 25.4
--- NOTE | 2020-11-14 14:22 | HP.PTEVAL_ITS ---
Patient's Visit Information IRMA BATEMAN is a 65 year old F referred to Physical Therapy by Dr. Bob Rowley DO with a diagnosis of Muscle Weakness and Gait. Date of Evaluation: 11/14/20 Physical Therapist: Sherrell Hsieh DPT - Visit Plan Frequency: 2x /Week Duration: 4 Weeks Plan: Aquatic Therapy- focus on LE and balance - Subjective Patient reports that she had her ears and brain checked in [place] in the last two weeks and she does not have the results left- they are suppose to send her the results. The neurologist has written her off until March and wants her to have therapy 3x a week. She has been working with a neurologist Dr. Felder at [facility]. She is doing stairs at home, sit to stands, HR/TR, VOR walking, inchworms. Currently she still has the weakness- right leg/knee is worse than the left. She does exercises for her knee prior to the other exercises. She has had no falls- but does feel like she is off balance. Knee surgery on the right about a year ago. She is currently off work- she had FCE- has a follow up Nov 21. 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 She is fully I with all ADL's but feels it takes her longer to do the work. She feels like her legs are heavy and when she walks her feet are going into the floor. Barefoot in the house- tennis shoes when she goes out- no inserts. Does not use an AD- but has them if neede d. Sleep: not disturbed- best time is when she is laying or sitting down. Weakness is instant when she puts her feet on the floor- instantly goes away when she sits back down. - Objective Posture: FH, RS can correct but does not maintain. Gait: apraxic gait pattern with decreased proprioception with wider LOREN and decreased stride length. HR/TR: able with UE A. SLS: weight shift but unable to SLS. Palpation: not tender. Strength: Bilateral hip flex 4-/5, Bilateral knee ext 4/5, B knee flex 4/5, B hip abd 4/5. FGA 12. - Goals Goal 1:: Patient will be I with HEP and progression Goal Time Frame: 4-6 Weeks Goal 2:: Patient will maintain proper posture t/o tx session to demo increased posture s/s Goal Time Frame: 4-6 Weeks Goal 3:: Patient will ambulate>300 feet with a normalized gait pattern Goal Time Frame: 4-6 Weeks Goal 4:: Patient will asc/desc 8 stairs recip with 1 HR and good control. Goal Time Frame: 4-6 Weeks - Rehabilitation Potential Physical Therapy Diagnosis: Patient presents with hypomobility- she has decreased strength, flex and muscular endurance leading to abnormal gait pattern and decreased ability with ADL's. Rehabilitation Potential: Fair - Anticipated Interventions Patient/Client Instruction: Educate patient on: Benefits of Fitness Program Therapeutic Exercise to Include: Strength training, Endurance training, Balance training, Agility training, Body mechanics, Postural training, Flexibilty training, Gait and locomotor training, Neuromotor development, In an aquatic setting, Dynamic Lumbar Stabilization, Scapular Strength/Stabilization For the Purpose of:: To improve muscle performance and motor function Thank you for the opportunity to evaluate your patient. For Medicare and Medicare HMO plans, please review the plan of care and approve it. It will need to be FAXED BACK to us at [phone] for Medicare purposes. For Medicare only, by signing this I certify the plan of care. Please let me know if there are questions or concerns regarding this plan of care. Physician Signature: Date:
--- NOTE | 2021-02-06 08:06 | HP.PT.NRP ---
IRMA BATEMAN was seen in my office for initial evaluation on 11/14/20. The following Plan of Care was established for this patient: Initial Frequency: 2x /Week Initial Duration: 4 Weeks Patient/Client Instruction: Educate patient on: Benefits of Fitness Program Therapeutic Exercise to Include: Strength training, Endurance training, Balance training, Agility training, Body mechanics, Postural training, Flexibilty training, Gait and locomotor training, Neuromotor development, In an aquatic setting, Dynamic Lumbar Stabilization, Scapular Strength/Stabilization For the Purpose of:: To improve muscle performance and motor function This patient was last seen in our office . Pertinent comments regarding their Physical therapy will appear below: Patient has not attended PT in over 4 weeks and is appropriate for discharge- return to MD for further evaluation as needed. At this point I will be discontinuing this patient from physical therapy. I would be happy to see this patient again in the future if found appropriate by the physician. Thank you! Sherrell Hsieh, DPT Balance/Gait/Functional tests - Balance/Special Test Scores Lower Extremity Functional Score: 34
== END 2020-11-25 19:00 | disposition home or self-care (01) ==
LOC: PT 14:30
PROVIDERS: PCP Student in an Organized Health Care Education/Training Program; Referring Provider Student in an Organized Health Care Education/Training Program; Visit Provider Student in an Organized Health Care Education/Training Program
DX: R29.898 Other symptoms and signs involving the musculoskeletal system (principal); R26.81 Unsteadiness on feet
CPT/HCPCS: 97113; 97162